=== PATIENT | male | born 1990 | race Caucasian/White ===

== ENCOUNTER 2022-01-17 13:51 | Emergency (ER) | payer OTHER, SELFPAY ==
[2022-01-17 13:53] VITALS: BP 181/105; PULSE 113; RESP 20; TEMP 36.9; O2SAT 100
[2022-01-17 16:41] LABS: Basophils Absolute Auto 0.1 K/mm3 (0.0-0.1); Basophils Percent Auto 0.8 % (0.2-1.2); Eosinophils Absolute Auto 0.1 K/mm3 (0-0.3); Hematocrit 44.2 % (42.0-52.0); Hemoglobin 16.2 g/dL (14.0-18.0); Immature Granulocyte Absolute 0.02 K/mm3 (0.00-0.031); Immature Granulocyte Percent A 0.3 % (0-0.5); Immature Platelet Fraction Pct 11.4 % (0.9-11.2); Lymphocytes Absolute Auto 1.14 K/mm3 (0.9-3.2); Lymphocytes Percent Auto 17.5 % (18.3-44.2); Mean Corpuscular HGB Conc 36.7 g/dl (32-36); Mean Corpuscular Hemoglobin 35.5 pg (26-34); Mean Corpuscular Volume 96.9 fl (80-100); Mean Platelet Volume 10.8 fl (7.4-10.4); Monocytes Absolute Auto 1.3 K/mm3 (0.1-0.6); Monocytes Percent Auto 19.4 % (2.6-8.5); Neutrophils Absolute Auto 3.9 K/mm3 (1.3-6.7); Platelet Count Result 89 k/mm3 (150-375); Red Blood Count 4.56 M/mm3 (4.6-6.20); Red Cell Distribution Width 11.5 % (11.5-14.5); White Blood Count 6.5 K/mm3 (4.5-10.0)
[2022-01-17 16:53] LABS: Alanine Aminotransferase 122 U/L (6-50); Albumin Level 5.1 g/dL (3.5-5.1); Alkaline Phosphatase 69 U/L (38-126); Anion Gap 17 mmol/L (8-16); Aspartate Amino Transferase 121 U/L (17-59); Bilirubin,Total 2.5 mg/dL (0.2-1.3); Blood Urea Nitrogen 11 mg/dL (9-20); Calcium 9.7 mg/dL (8.4-10.2); Carbon Dioxide 26 mmol/L (22-30); Chloride 88 mmol/L (98-107); Estimated CRCL calculation 126 ml/min; Estimated Glomerular Filt Rate > 60; Glucose 80 mg/dL (65-110); Potassium 3.3 mmol/L (3.4-5.0); Sodium 131 mmol/L (137-145)
[2022-01-17 16:56] LABS: Ethanol < 10 mg/dL (<10)
[2022-01-17 17:05] LABS: Amphetamine Screen Urine Negative (Negative); Barbiturate Screen Urine Negative (Negative); Benzodiazepines Screen Urine Positive (Negative); Cannabinoid Screen Urine Negative (Negative); Cocaine Screen Urine Negative (Negative); Methadone Screen Urine Negative (Negative); Opiate Screen Urine Negative (Negative); Phencyclidine Screen Urine Negative (Negative)
--- NOTE | 2022-01-17 18:11 | PC.NURSE ---
patient's father approached marketing copywriter stating that patient sent him a text message saying Immediate surgery . patient very anxious and tearful in room he states that he had a whiskey shooter last night around 2200 with his trazodone and then 2 more shots this morning around 0800. patient states that he thought he was going to surgery because he heard people putting keys in the door and talking about me .
--- NOTE | 2022-01-17 18:26 | ED.ALCOHOL ---
HPI - Alcohol General Chief Complaint: Alcohol Stated Complaint: alcohol withdrawal Time Seen by Provider: 01/17/22 14:00 History of Present Illness HPI narrative: Pt has been through rehab for alcohol abuse in past. Pt started weaning himself off of alcohol last week and had his last drink 6 days ago. Pt says he had some shakes but those have resolved. Pt took two trazadone last night to sleep and family said he was hallucinating and wanted him checked out. Pt has no history of withdrawl seizures. Related Data Allergies Allergy/AdvReac Type Severity Reaction Status Date / Time peanut Allergy Unknown Anaphylaxis Verified 01/17/22 15:45 Penicillins Allergy Unknown Hives Verified 01/17/22 15:45 Review of Systems Review of Systems: All systems reviewed & are unremarkable except as noted in HPI and below PMFSH Social History Social History Smoking status: Smoker, status unknown Alcohol intake: current Exam Const: General: healthy appearing Nutritional Appearance: well nourished Orientation/consciousness: patient oriented x3 Limitations: no limitations HENMT: Head: normal to inspection Resp: Effort & Inspection: normal respiratory effort and uses accessory muscles Auscultation: clear to auscultation bilaterally Cardio: Rate: regular rate Rhythm: regular rhythm GI: GI Palp: Yes Soft to palpation Auscultation: normal bowel sounds Skin: General skin exam: normal color Rashes: no rashes Wounds: no wounds Neuro: General: patient oriented x3, moves all extremities, no meningeal signs, no focal motor deficits and CN's II-XI intact bilaterally Cranial nerves: Yes Nystagmus not present Speech: normal speech Extrem: General: normal to inspection Psych: Mental Status: mental status grossly normal Affect: normal affect Attitude: cooperative Course Vital Signs Vital signs: Vital Signs Temperature 98.5 F 01/17/22 13:53 Pulse Rate 113 H 01/17/22 13:53 Respiratory Rate 01/17/22 13:53 Blood Pressure 181/105 H 01/17/22 13:53 Pulse Oximetry 100 01/17/22 13:53 Oxygen Delivery Room Air 01/17/22 13:53 Temperature 98.5 F 01/17/22 13:53 Pulse Rate 113 H 01/17/22 13:53 Respiratory Rate 20 01/17/22 13:53 Blood Pressure 181/105 H 01/17/22 13:53 Pulse Oximetry 100 01/17/22 13:53 Oxygen Delivery Room Air 01/17/22 13:53 MDM - Alcohol Lab Data Result diagrams: 01/17/22 16:32 01/17/22 16:32 Labs: Lab Results 01/17/22 01/17/22 01/17/22 Range/Units 16:32 16:32 16:32 WBC 6.5 (4.5-10.0) K/mm3 RBC 4.56 L (4.6-6.20) M/mm3 Hgb 16.2 (14.0-18.0) g/dL Hct 44.2 (42.0-52.0) % MCV 96.9 (80-100) fl MCH 35.5 H (26-34) pg MCHC 36.7 H (32-36) g/dl RDW 11.5 (11.5-14.5) % Plt Count 89 L (150-375) k/mm3 MPV 10.8 H (7.4-10.4) fl Immature Gran % (Auto) 0.3 (0-0.5) % Neut % (Auto) 60.0 (45.5-73.1) % Lymph % (Auto) 17.5 L (18.3-44.2) % Donley % (Auto) 19.4 H (2.6-8.5) % Eos % (Auto) 2.0 (0-4.4) % Baso % (Auto) 0.8 (0.2-1.2) % Lymph # (Auto) 1.14 (0.9-3.2) K/mm3 Donley # (Auto) 1.3 H (0.1-0.6) K/mm3 Eos # (Auto) 0.1 (0-0.3) K/mm3 Baso # (Auto) 0.1 (0.0-0.1) K/mm3 Abs Immat Gran (auto) 0.02 (0.00-0.031) K/mm3 Absolute Neuts (auto) 3.9 (1.3-6.7) K/mm3 Absolute Nucleated RBC 0.0 (0.0-0.012) K/mm3 Nucleated RBC % 0.0 (0.0-0.2) % % Immature Plt Fraction 11.4 H (0.9-11.2) % Sodium 131 L (137-145) mmol/L Potassium 3.3 L (3.4-5.0) mmol/L Chloride 88 L (98-107) mmol/L Carbon Dioxide 26 (22-30) mmol/L Anion Gap 17 H (8-16) mmol/L BUN 11 (9-20) mg/dL Creatinine 0.80 (0.7-1.3) mg/dL Estim Creat Clear Calc 126 ml/min Estimated GFR > 60 (59 - ) Glucose 80 (65-110) mg/dL Calcium 9.7 (8.4-10.2) mg/dL Total Bilirubin 2.5 H (0.2-1.3) mg/dL AST 121 H (17-59) U/L ALT 122 H (6-50) U/L
[2022-01-17] MEDS: LORazepam INJ (*CRX) 2 MG/ML VIAL 1 MG IV PUSH (18:30)
[2022-01-17] MEDS: THIAMINE HCL 200 MG/2 ML VIAL 100 MG IV PUSH (19:43)
== END 2022-01-17 19:49 | disposition home or self-care (01) ==
PROVIDERS: Emergency Provider Emergency Medicine; PCP Nurse Practitioner Adult Health
DX: F10.239 Alcohol dependence with withdrawal, unspecified (principal); Y90.0 Blood alcohol level of less than 20 mg/100 ml
CPT/HCPCS: 36415; 80053; 80307; 85025; 85055; 96374; 96375; 99284; J2060; J3411